=== PATIENT | female | born 1955 | race Caucasian/White ===

== ENCOUNTER 2016-12-17 14:46 | Emergency (ER) | payer MEDICARE, MEDICAID ==
--- NOTE | 2016-12-17 15:45 | RAD ---
LEFT FINGER 3 VIEWS: Date: 12/17/16 HISTORY: Injury, pain in 5th digit of left hand. FINDINGS/IMPRESSION: No acute fracture or dislocation is seen. Degenerative changes are present. POS: [facility]
== END 2016-12-17 16:05 | disposition home or self-care (01) ==
LOC: BURERS 14:46
DX: S63.637A Sprain of interphalangeal joint of left little finger, initial encounter (principal); E03.9 Hypothyroidism, unspecified; I10 Essential (primary) hypertension; F41.9 Anxiety disorder, unspecified; F17.210 Nicotine dependence, cigarettes, uncomplicated; X58.XXXA Exposure to other specified factors, initial encounter
CPT/HCPCS: 99283

== ENCOUNTER 2018-12-12 00:03 | Emergency (ER) | payer MEDICARE, MEDICAID ==
[2018-12-12] MEDS ORDERED: CEFAZOLIN 1 GM VIAL ONE (01:00)
[2018-12-12] MEDS ORDERED: HYDROcodone/Acetaminophen 5/325 mg Tablet ONE (01:00)
[2018-12-12] MEDS ORDERED: Adacel (T-DAP) 0.5 ML SYRINGE ONE (01:01)
[2018-12-12] MEDS ORDERED: Bacitracin Zinc 1 Packet ONE (01:09)
--- NOTE | 2018-12-12 07:29 | RAD ---
RIGHT FOOT 2 VIEWS: Date: 12/12/18 Only 2 views were provided, and as the toes were the main area of concern, views are not sufficient t o completely rule out fractures. The bones are rather osteopenic, which also decreases the sensitivit y of this study. The clinical history given says injury to the fourth toe. There appears to be some sort of bandage ar ound the third toe. No definite fracture is seen. There is a little irregularity of the terminal tuft of the distal phala nx of the THIRD toe, but I am not prepared to call a definitive fracture here without more views. The joints showed no acute findings. The other bones of the foot appear intact. There is swelling in the forefoot, especially dorsally. IMPRESSION: Less than optimal study showing no definite fracture. There is some slight irregularity of the termin al tuft of the distal phalanx of the third toe, however. Follow-up with isolated views of toes in que stion if needed. CODE T. POS: HOME
== END 2018-12-12 06:28 | disposition home or self-care (01) ==
LOC: BURERS 00:03
DX: S91.214A Laceration without foreign body of right lesser toe(s) with damage to nail, initial encounter (principal); D64.9 Anemia, unspecified; E03.9 Hypothyroidism, unspecified; I10 Essential (primary) hypertension; F41.9 Anxiety disorder, unspecified; F17.210 Nicotine dependence, cigarettes, uncomplicated; Z79.899 Other long term (current) drug therapy; W22.8XXA Striking against or struck by other objects, initial encounter
CPT/HCPCS: 11750; 90471; 90715; 96372; J0690

== ENCOUNTER 2021-03-07 15:56 | Outpatient (CLI) | payer MEDICARE, OTHER ==
[2021-03-07 16:44] LABS: #Basophils 0.1 thou/uL (0.0-0.2); #Eosinphils 0.3 thou/uL (0.0-0.7); #Monocytes 0.6 thou/uL (0.11-0.59); %Basophils 1.6 % (0.0-1.0); %Eosinophils 3.5 % (0.0-10.0); %Lymphocytes 19.3 % (21.0-51.0); %Monocytes 6.9 % (0.0-10.0); %Neutrophils 68.6 % (42.0-75.0); Hemoglobin 8.2 g/dL (12.0-16.0); Mean Corpuscular HGB CONC 29.4 g/dL (32.0-36.0); Mean Corpuscular Hemoglobin 18.4 pg (27.0-31.0); Mean Corpuscular Volume 62.5 fL (78.0-98.0); Mean Platelet Volume 6.1 fL (7.4-10.4); Platelet Count 388 thou/uL (130-400); RBC Distribution Width 18.5 % (11.5-14.5); Red Blood Cell (RBC) Count 4.39 mill/uL (4.20-5.40); Reflex for Review?? YES; White Blood Cell (WBC) Count 8.7 thou/uL (4.8-10.8)
[2021-03-07 16:45] LABS: Anisocytosis MODERATE=16-30 cells (100X) (0-5/hpf); Hypochromia MODERATE=16-30 cells (100X) (0-5/hpf); Microcytosis MODERATE=15-30 cells (100X) (0-5/hpf); Ovalocytes SLIGHT = 2-5 cells (100X) (0-1/hpf); Platelet Morphology Comment Appears Adequate; Spherocytes MODERATE= 6-15 cells (100X) (None Seen); Tear Drops SLIGHT = 2-5 cells (100X) (0-1/hpf)
[2021-03-07 21:33] LABS: #Lymphocytes 1.7 thou/uL (1.20-3.40)
== END 2021-03-07 15:57 | disposition home or self-care (01) ==
LOC: BURLABSP 15:56
PROVIDERS: ATTEND Family Medicine
DX: I11.0 Hypertensive heart disease with heart failure (principal); I50.30 Unspecified diastolic (congestive) heart failure; I87.2 Venous insufficiency (chronic) (peripheral); J44.9 Chronic obstructive pulmonary disease, unspecified
CPT/HCPCS: 85025; 85060

== ENCOUNTER 2021-04-15 08:02 | Emergency (ER) | payer MEDICARE, OTHER | END 2021-04-15 09:36 | disposition home or self-care (01) | LOC: BURERS 08:02 | DX: S81.811A Laceration without foreign body, right lower leg, initial encounter (principal); E03.9 Hypothyroidism, unspecified; I10 Essential (primary) hypertension; F17.210 Nicotine dependence, cigarettes, uncomplicated; W22.8XXA Striking against or struck by other objects, initial encounter | CPT/HCPCS: 12002 ==